=== PATIENT | male | born 1995 | race Caucasian/White ===

== ENCOUNTER 2017-06-22 12:14 | Emergency (ER) | payer MEDICAID ==
[~2017-06-22] VITALS: Ht 162.6 cm; Wt 90.7 kg
[2017-06-22 12:30] VITALS: BP 121/76
[2017-06-22] MEDS ORDERED: Acetam/CODEINE 120mg/12mg per 5mL UD PO ONE (13:15)
[2017-06-22] MEDS ORDERED: HYDROcodone-ACET 5/325MG TAB PO ONE (13:30)
[2017-06-22] MEDS ORDERED: cefTRIAXone SOD 1,000 MG VL IM ONE (13:45)
[2017-06-22] MEDS ORDERED: LIDOCAINE 1% (LOCAL ANESTH.) PF 5ml SDV IJ ONE (13:45)
== END 2017-06-22 14:08 | disposition home or self-care (01) ==
LOC: ER 12:14
DX: S93.602A Unspecified sprain of left foot, initial encounter (principal); X58.XXXA Exposure to other specified factors, initial encounter; Y93.89 Activity, other specified; Y92.89 Other specified places as the place of occurrence of the external cause; Y99.8 Other external cause status
CPT/HCPCS: 73610; 73630; 96372; 99284; J0696

== ENCOUNTER 2018-09-23 05:03 | Emergency (ER) | payer MEDICAID ==
[~2018-09-23] VITALS: Ht 177.8 cm; Wt 90.7 kg
[2018-09-23] MEDS ORDERED: MORPHINE SULF INJ 2 MG/ML SYRINGE 1ML IM ONE (05:30)
[2018-09-23] MEDS ORDERED: ONDANSETRON HCL 4 MG/2 ML VIAL IM ONE (05:30)
[2018-09-23 06:24] LABS: Basophils # (auto) 0 uL; Basophils % (auto) 0.3 % (0.0-2.0); Eosinophils # (auto) 0 uL; Eosinophils % (auto) 0.5 % (0.0-7.0); Hematocrit 41.7 % (41.0-53.0); Hemoglobin 14.5 g/dL (13.5-17.5); Lymphocytes # (auto) 1.6 uL; Lymphocytes % (auto) 29.8 % (10.0-50.0); Mean Corpuscular Hgb Conc. 34.8 g/dL (32.0-36.0); Monocytes # (auto) 0.6 uL; Neutrophils # (auto) 3.1 uL; Neutrophils % (auto) 58.4 % (37.0-80.0); Nucleated Red Blood Cells % 0.1 %; Platelet Count (auto) 161 10^3/uL (140-450); Red Blood Cells 4.68 10^6/uL (4.5-5.90); Red Cell Distribution Width 13.3 % (11.8-14.3); White Blood Cell 5.4 10^3/uL (4.4-10.8)
[2018-09-23 06:41] LABS: Albumin 3.5 g/dL (3.4-5.0); BUN/Creatinine Ratio 10.4; Calcium 9.8 mg/dL (8.5-10.1); Potassium 3.6 mmol/L (3.5-5.1); Uric Acid 8.2 mg/dL (3.5-7.2)
[2018-09-23 06:44] LABS: Total Protein 8.7 g/dL (6.4-8.2)
[2018-09-23 07:13] VITALS: BP 127/82
[2018-09-23] MEDS ORDERED: INDOMETHACIN 25 MG CAP PO ONE (07:15)
== END 2018-09-23 08:06 | disposition home or self-care (01) ==
LOC: ER 05:03 → EDBD 05:03 → ER 08:06
DX: M10.072 Idiopathic gout, left ankle and foot (principal)
CPT/HCPCS: 36415; 80053; 84550; 85025; 96372; 99283; J2270; J2405

== ENCOUNTER 2021-09-25 17:21 | Emergency (ER) | payer MEDICAID ==
[~2021-09-25] VITALS: Ht 165.1 cm; Wt 61.0 kg
[2021-09-25 18:38] VITALS: BP 110/72
== END 2021-09-26 03:20 | disposition left against medical advice (07) ==
LOC: ER 17:21
DX: R53.1 Weakness (principal); Z53.21 Procedure and treatment not carried out due to patient leaving prior to being seen by health care provider
CPT/HCPCS: 82962

== ENCOUNTER 2025-02-26 12:35 | Emergency (ER) | payer MEDICAID ==
[~2025-02-26] VITALS: Ht 177.8 cm; Wt 90.9 kg
[2025-02-26 12:40] VITALS: BP 130/82; PULSE 100; RESP 16; TEMP 98.5; O2SAT 97
[2025-02-26] MEDS ORDERED: KETOROLAC TROMETH 60MG/2ML VIAL IM ONE (13:15)
--- NOTE | 2025-02-26 13:18 | ED.PDOC ---
History of Present Illness HPI Comments 30 year old male with PMHx mental delay, autism, gout, presents to the ED via EMS with a chief complaint of body pain onset today. Patient's relative states patient began experiencing generalized body pain, was hunched over due to pain. Patient has autism, mental delay, is not able to specify where pain is located. Denies fever, chills, headache, dizziness, chest pain, blurred vision, fall, injury. No other symptoms or modifying factors present at this time. Chief Complaint: Body Pain Time Seen by MD: 13:05 Primary Care Provider: TALIB Bahena Notes: Medications, Allergies Allergies: Coded Allergies: NO KNOWN ALLERGIES (Unverified , 06/22/17) Information Source: Relative, Emergency Med Personnel Mode of Arrival: EMS Severity: Moderate Timing: Hours Duration: Since onset Prehospital treatment: None Past Medical History PAST MEDICAL HISTORY: Gout Past Medical History (Other): Autisim Surgical History: Denies all surgeries Family History Family History: Unknown Social History Smoker: Non-Smoker Alcohol: Denies ETOH Use Drugs: Denies Drug Use Lives In: Home Constitutional: reports: others (generalized body pain); denies: chills, diaphoresis, fatigue, fever, malaise, sweats, weakness EENTM: denies: blurred vision, double vision, ear bleeding, ear discharge, ear drainage, ear pain, ear ringing, eye pain, eye redness, hearing loss, mouth pain, mouth swelling, nasal discharge, nose bleeding, nose congestion, nose pain, photophobia, tearing, throat pain, throat swelling, voice changes, others Respiratory: denies: cough, hemoptysis, orthopnea, SOB at rest, shortness of breath, SOB with excertion, stridor, wheezing, others Cardiovascular: denies: chest pain, dizzy spells, diaphoresis, Dyspnea on exertion, edema, irregular heart beat, left arm pain, lightheadedness, palpitations, PND, syncope, others Gastrointestinal: denies: abdomen distended, abdominal pain, blood streaked bowels, constipated, diarrhea, dysphagia, difficulty swallowing, hematemesis, melena, nausea, poor appetite, poor fluid intake, rectal bleeding, rectal pain, vomiting, others Genitourinary: denies: burning, dysuria, flank pain, frequency, hematuria, incontinence, penile discharge, penile sore, pain, testicle pain, testicle swelling, urgency, others Neurological: denies: dizziness, fainting, headache, left sided numbness, left sided weakness, numbness, paresthesia, pre-existing deficit, right sided numbness, right sided weakness, seizure, speech problems, tingling, tremors, weakness, others Musculoskeletal: denies: back pain, gout, joint pain, joint swelling, muscle pain, muscle stiffness, neck pain, others Integumetry: denies: bruises, change in color, change in hair/nails, dryness, laceration, lesions, lumps, rash, wounds, others Allergic/Immunocompromised: denies: Difficulty Healing, Frequent Infections, Hives, Itching, others Hematologic/Lymphatic: denies: anemia, blood clots, easy bleeding, easy bruising, swollen glands, others Endocrine: denies: excessive hunger, excessive sweating, excessive thirst, excessive urination, flushing, intolerance to cold, intolerance to heat, unexplained weight gain, unexplained weight loss, others Psychiatric: denies: anxiety, bipolar disorder, depression, hopeless, panic disorder, schizophrenia, sleepless, suicidal, others All Other Systems: Reviewed and Negative Physical Exam General Appearance: Moderate Distress, Normal HEENT: Normal ENT Inspection, Pharynx Normal, TMs Normal Neck: Full Range of Motion, Non-Tender, Normal, Normal Inspection Respiratory: Chest Non-Tender, Lungs Clear, No Accessory Muscle Use, No Respiratory Distress, Normal Breath Sounds Cardiovascular: No Edema, No JVD, No Murmur, No Gallop, Normal Peripheral Pulses, Regular Rate/Rhythm Breast Exam: Deferred Gastrointestinal: No Organomegaly, Non Tender, No Pulsatile Mass, Normal Bowel Sounds, Soft Genitalia: Deferred Pelvic: Deferred Rectal: Deferred Extremities: No calf tenderness, Normal capillary refill, Normal inspection, Normal range of motion, Non-tender, No pedal edema Musculoskeletal : Apperance: Normal Neurologic: Alert, sample grinder II-XII nml as Tested, No Motor Deficits, Normal Affect, Normal Mood, No Sensory Deficits Cerebellar Function: NOT DONE Reflexes: NOT DONE Skin: Dry, Normal Color, Warm Peripheral Pulses: 3+ Radial (R), 3+ Radial (L) Lymphatic: No Adenopathy Was a procedure done? Was a procedure done?: No Differential Dx Considerations may include: Anemia Electrolyte imbalance X-Ray, Labs, Meds, VS Vital Signs Date Time Temp Pulse Resp B/P (MAP) Pulse Ox O2 Delivery O2 Flow Rate FiO2 02/26/25 12:40 98.5 100 16 130/82 97 98.5 Patient on statistic. Vitals stable. Possible gout. Moving all extremities. Continue monitoring. Time of 1ST Reevaluation: 13:35 Reevaluation 1ST: Unchanged Patient Education/Counseling: Diagnosis, Treatment, Prognosis Family Education/Counseling: Diagnosis, Treatment, Prognosis SEPSIS Sepsis Screen Vital Signs Date Time Temp Pulse Resp B/P (MAP) Pulse Ox O2 Delivery O2 Flow Rate FiO2 02/26/25 12:40 98.5 100 16 130/82 97 98.5 Departure 1 Departure Time of Disposition: 18:02 Impression: Primary Impression: Musculoskeletal pain Disposition: 30 STILL A PATIENT Condition: Good Critical Care Note Critical Care Time?: No Stability Stability form required: No Heart Score Heart Score: Heart Score Response (Comments) Value History N/A 0 EKG N/A 0 Age N/A 0 Risk Factors N/A 0 Troponin N/A 0 Total 0 I personally scribed for LANA VALDIVIA MD ([email or web address]) on 02/26/25 at 13:18. Electronically submitted by Jana Rasheed ([email or web address]). LANA VALDIVIA MD Feb 26, 2025 13:18
== END 2025-02-26 13:17 | disposition left against medical advice (07) ==
LOC: ER 12:35 → EDBD 12:35 → ER 13:17
DX: M79.18 Myalgia, other site (principal); M10.9 Gout, unspecified; F84.0 Autistic disorder; Z79.899 Other long term (current) drug therapy